=== PATIENT | male | born 1955 | race Caucasian/White ===

== ENCOUNTER 2019-08-11 14:00 | Inpatient (IN) ==
[2019-08-11] MEDS ORDERED: ACETAMINOPHEN 325 MG TABLET PO PRN (22:33)
[2019-08-11] MEDS ORDERED: ONDANSETRON 4 MG/2 ML VIAL IV PRN (22:33)
[2019-08-11] MEDS ORDERED: GLUCAGON 1 MG VIAL IM PRN (22:33)
[2019-08-11] MEDS ORDERED: DEXTROSE 50% 25 GM/50 ML VIAL IV PRN (22:33)
[2019-08-11] MEDS ORDERED: LACTATED RINGERS 1,000 ML IV SCH (23:00)
[2019-08-12] MEDS: PANTOPRAZOLE 40 MG VIAL IV SCH ×3 (00:28→20:41)
[2019-08-12] MEDS: NAFCILLIN 2,000 MG in SODIUM CHLORIDE 0.9% 100 ML IV SCH ×2 (00:29→04:19)
[2019-08-12 01:28] LABS: Basophils # 0.1 10*3/uL (0.0-0.2); Basophils % 1.2 % (0.0-0.8); Eosinophils # 0.6 10*3/uL (0.0-0.87); Eosinophils % 4.9 % (0.00-10.9); Hematocrit 29.8 VOL% (42.0-52.0); Hemoglobin 9.2 GM/DL (14.0-18.0); Immature Granulocytes % 0.3 %; Immature Granulocytes Absolute 0.03 #; Lymphocytes # 2.2 10*3/uL (1.4-4.0); Lymphocytes % 19.1 % (21.2-54.2); Mean Corpuscular HGB Conc 30.9 GM/DL (32-36); Mean Platelet Volume 8.8 FL (9.6-12.0); Monocytes % 7.8 % (1.7-12.7); Neutrophils % 66.7 % (38.7-73.9); Platelet Count 577 T/CUMM (130-400); Red Blood Count 3.31 MC/CUMM (3.8-5.5); Red Cell Distribution Width 18.7 % (9.3-17.3); White Blood Count 11.4 T/CUMM (4-12)
[2019-08-12 02:08] LABS: Albumin 1.8 G/DL (3.4-5.0); Bilirubin,Total 0.6 MG/DL (0.2-1.0); Calcium 9.3 MG/DL (8.5-10.1); Osmolality,Calculated 273.5 MOS/KG (273-304); Total Protein 6.6 G/DL (6.4-8.3)
[2019-08-12 05:59] LABS: Basophils # 0.2 10*3/uL (0.0-0.2); Basophils % 1.3 % (0.0-0.8); Eosinophils # 0.5 10*3/uL (0.0-0.87); Eosinophils % 4.8 % (0.00-10.9); Hematocrit 31.3 VOL% (42.0-52.0); Hemoglobin 9.3 GM/DL (14.0-18.0); Immature Granulocytes % 0.5 %; Immature Granulocytes Absolute 0.06 #; Lymphocytes # 1.9 10*3/uL (1.4-4.0); Lymphocytes % 16.8 % (21.2-54.2); Mean Corpuscular HGB Conc 29.7 GM/DL (32-36); Mean Corpuscular Volume 90.7 FL (87-102); Monocytes % 7.7 % (1.7-12.7); Neutrophils % 68.9 % (38.7-73.9); Platelet Count 565 T/CUMM (130-400); Red Blood Count 3.45 MC/CUMM (3.8-5.5); Red Cell Distribution Width 18.7 % (9.3-17.3); White Blood Count 11.4 T/CUMM (4-12)
[2019-08-12 06:23] LABS: Albumin 1.7 G/DL (3.4-5.0); Bilirubin,Total 0.8 MG/DL (0.2-1.0); Calcium 9.2 MG/DL (8.5-10.1); Osmolality,Calculated 271.7 MOS/KG (273-304); Total Protein 6.2 G/DL (6.4-8.3)
[2019-08-12] MEDS: FERROUS SULFATE 325 MG TABLET PO SCH ×2 (09:30→20:41)
[2019-08-12] MEDS: FOLIC ACID 1 MG TABLET PO SCH (09:30)
[2019-08-12] MEDS: amLODIPine 5 MG TABLET PO SCH (09:30)
[2019-08-12] MEDS: ZINC SULFATE 220 MG CAPSULE PO SCH (09:30)
[2019-08-12] MEDS ORDERED: MAGNESIUM SULF RIDER 4 GM in PREMIX 1 EACH IV PRN (12:27)
[2019-08-12] MEDS ORDERED: POTASSIUM CHLORIDE 20 MEQ TABLET PO PRN (12:27)
[2019-08-12] MEDS ORDERED: MAGNESIUM SULF RIDER 2 GM in PREMIX 1 EACH IV PRN (12:27)
[2019-08-12] MEDS: ATORVASTATIN 10 MG TABLET PO SCH (20:41)
[2019-08-13] MEDS: amLODIPine 5 MG TABLET PO SCH (09:04)
[2019-08-13] MEDS: FERROUS SULFATE 325 MG TABLET PO SCH ×2 (09:04→21:59)
[2019-08-13] MEDS: FOLIC ACID 1 MG TABLET PO SCH (09:05)
[2019-08-13] MEDS: PANTOPRAZOLE 40 MG VIAL IV SCH ×2 (09:05→22:01)
[2019-08-13 09:33] LABS: Basophils # 0.2 10*3/uL (0.0-0.2); Basophils % 1.2 % (0.0-0.8); Eosinophils # 0.5 10*3/uL (0.0-0.87); Eosinophils % 3.8 % (0.00-10.9); Hematocrit 37.1 VOL% (42.0-52.0); Hemoglobin 11.1 GM/DL (14.0-18.0); Immature Granulocytes % 0.5 %; Immature Granulocytes Absolute 0.06 #; Lymphocytes # 1.7 10*3/uL (1.4-4.0); Lymphocytes % 13.7 % (21.2-54.2); Mean Corpuscular HGB Conc 29.9 GM/DL (32-36); Mean Corpuscular Volume 91.6 FL (87-102); Mean Platelet Volume 8.8 FL (9.6-12.0); Neutrophils % 75.8 % (38.7-73.9); Platelet Count 640 T/CUMM (130-400); Red Blood Count 4.05 MC/CUMM (3.8-5.5); Red Cell Distribution Width 18.5 % (9.3-17.3); White Blood Count 12.3 T/CUMM (4-12)
[2019-08-13 10:10] LABS: Calcium 9.2 MG/DL (8.5-10.1); Osmolality,Calculated 270.1 MOS/KG (273-304)
[2019-08-13] MEDS: ATORVASTATIN 10 MG TABLET PO SCH (22:00)
[2019-08-14] MEDS: ZINC SULFATE 220 MG CAPSULE PO SCH (09:24)
[2019-08-14] MEDS: amLODIPine 5 MG TABLET PO SCH (09:24)
[2019-08-14] MEDS: FERROUS SULFATE 325 MG TABLET PO SCH (09:24)
[2019-08-14] MEDS: FOLIC ACID 1 MG TABLET PO SCH (09:24)
[2019-08-14] MEDS: PANTOPRAZOLE 40 MG VIAL IV SCH (09:25)
[2019-08-14 11:39] VITALS: BP 165/76
[2019-08-18] MEDS ORDERED: ERGOCALCIFEROL 50,000 UNIT CAPSULE PO SCH (09:00)
== END 2019-08-14 16:31 | DRG 377 ==
LOC: SUATTDRO 19:51 → N.2W 19:51 → N.3E 08-12 21:19
PROVIDERS: ADMIT Hospitalist; ATTEND Internal Medicine Geriatric Medicine